=== PATIENT | female | born 1945 | race Caucasian/White ===

== ENCOUNTER → 2017-01-17 | Outpatient (CLI) | payer OTHER, MEDICARE | LOC: CIMAGING 12:35 | DX: Z12.31 Encounter for screening mammogram for malignant neoplasm of breast (principal); Z80.3 Family history of malignant neoplasm of breast | CPT/HCPCS: G0202 ==

== ENCOUNTER → 2017-10-09 | Outpatient (CLI) | payer OTHER, MEDICARE | LOC: CIMAGING 15:07 | PROVIDERS: ATTEND Family Medicine | DX: J98.4 Other disorders of lung (principal) | CPT/HCPCS: 71020-PO ==

== ENCOUNTER → 2018-02-13 | Outpatient (CLI) | payer OTHER, MEDICARE | LOC: CIMAGING 11:34 | PROVIDERS: ATTEND Family Medicine | DX: M25.551 Pain in right hip (principal); N85.4 Malposition of uterus; M19.90 Unspecified osteoarthritis, unspecified site | CPT/HCPCS: 73502-PO ==

== ENCOUNTER → 2018-12-17 | Outpatient (CLI) | payer OTHER, MEDICARE | LOC: CIMAGING 14:09 | PROVIDERS: ATTEND Family Medicine | DX: Z12.31 Encounter for screening mammogram for malignant neoplasm of breast (principal); Z80.3 Family history of malignant neoplasm of breast ==